=== PATIENT | female | born 1940 | race Caucasian/White ===

== ENCOUNTER → 2020-07-26 | Outpatient (CLI) | payer MEDICARE ==
--- NOTE | 2020-08-15 14:21 | REP ---
BILATERAL UPPER EXTREMITY DUPLEX DOPPLER ARTERIAL ULTRASOUND HISTORY: Pain. TECHNIQUE: Real-time ultrasound evaluation and duplex Doppler interrogation of the bilateral upper extremity arterial systems is performed. Mild scattered plaquing and narrowing is noted without evidence of hemodynamically significant stenosis bilaterally. Normal flow velocities are identified bilaterally. There are diffuse biphasic waveforms bilaterally. RIGHT LEFT Subclavian artery 75.9 cm/s 85.5 cm/s Axillary artery 112 cm/s 52.7 cm/s Brachial 155.1 cm/s 99.6 cm/s Radial 68.1 cm/s 44.3 cm/s Ulnar 76.8 cm/s 50.0 cm/s MTDD
== END ==
LOC: M RAD 10:06
PROVIDERS: ATTEND Physician Assistant
DX: M79.601 Pain in right arm (principal); M79.602 Pain in left arm; I65.23 Occlusion and stenosis of bilateral carotid arteries; I70.90 Unspecified atherosclerosis; I77.1 Stricture of artery

== ENCOUNTER → 2020-09-11 | Outpatient (CLI) | payer MEDICARE ==
--- NOTE | 2020-09-11 09:46 | REP ---
INDICATION: CLAUDICATION COMPARISON: None. TECHNIQUE: Real time michael scale and Duplex Doppler evaluation of the bilateral lower extremity arterial vasculature using linear high frequency transducer. FINDINGS: Michael scale and duplex doppler images demonstrate mild to moderate amounts of atheromatous plaquing with areas of narrowing but no focal stenosis identified in the right leg. Doppler interrogation demonstrates normal arterial wave forms and velocities bilaterally, except for monophasic waveforms in the left superficial femoral artery and posterior tibial artery. MERCEDES bilaterally is 0.8. There is approximately 2-1 stenosis in the left posterior tibial artery proximally. Peak systolic velocities (cm/sec) Common femoral artery: Right 226; Left 181 Profunda femoris: Right 207; Left 157 SFA (proximal): Right 136; Left 78 SFA (mid): Right 155; Left 85 SFA (distal): Right 114; Left 52 Popliteal artery: Right 42; Left 54 DIANA (prox.): Right 72; Left 46 Tibioperoneal trunk: Right 43; Left 43 LEAD RADIOLOGIC TECHNOLOGIST (prox.): Right 61; Left 99 LEAD RADIOLOGIC TECHNOLOGIST (distal): Right 46; Left 65 DIANA (distal): Right 94; Left 85 IMPRESSION: Atheromatous changes with areas of narrowing. 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 <Electronically signed by Augusto Michael > 09/11/20 [id number]
== END ==
LOC: M RAD 08:20
PROVIDERS: ATTEND Physician Assistant
DX: I70.213 Atherosclerosis of native arteries of extremities with intermittent claudication, bilateral legs (principal)

== ENCOUNTER → 2021-03-22 | Outpatient (REF) | payer MEDICARE ==
[2021-03-22 12:47] LABS: APPEARANCE, URINE HAZY (CLEAR); BACTERIA, URINE AUTO 3+ (NEGATIVE); BILIRUBIN, URINE AUTO NEGATIVE (NEGATIVE); BLOOD, URINE BLOOD NEGATIVE (NEGATIVE); COLOR, URINE YELLOW (YELLOW); GLUCOSE, URINE (UA) AUTO NEGATIVE (NEGATIVE); KETONE, URINE AUTO NEGATIVE (NEGATIVE); LEUKOCYTE ESTERASE, URINE AUTO 3+ (NEGATIVE); NITRITE, URINE AUTO NEGATIVE (NEGATIVE); PROTEIN, URINE AUTO NEGATIVE (NEGATIVE); RBC, URINE AUTO 0 /HPF (0-3); SPECIFIC GRAVITY URINE AUTO 1.005 (1.002-1.035); SQUAMOUS EPITHELIAL CELL UR AU 0 /HPF (0-6); UROBILINOGEN, URINE AUTO 0.2 mg/dL (0.0-2.0); WBC, URINE AUTO 122 /HPF (0-3)
== END ==
LOC: M SMT 12:19
PROVIDERS: ATTEND Specialist
DX: R35.0 Frequency of micturition (principal)
CPT/HCPCS: 51798; 81001; 87070; 87088; 87186; G0463

== ENCOUNTER → 2024-09-10 | Outpatient (REF) | payer MEDICARE | LOC: M SFHCDERM 16:47 | PROVIDERS: ATTEND Nurse Practitioner Family | DX: T81.49XA Infection following a procedure, other surgical site, initial encounter (principal) ==

== ENCOUNTER → 2024-10-06 | Outpatient (REF) | payer MEDICARE | LOC: M SFHCDERM 17:59 | PROVIDERS: ATTEND Dermatology | DX: L98.0 Pyogenic granuloma (principal) ==